=== PATIENT | female | born 1990 | race Caucasian/White ===

== ENCOUNTER 2017-08-22 14:06 | Emergency (ER) | payer OTHER ==
[~2017-08-22] VITALS: Ht 167.6 cm; Wt 116.0 kg
[~2017-08-22 14:06] MED LIST: ALPR0.5T99 PO; FEXO180 PO; LORA10TA7 PO; MEDR4PAK3 PO; MONT4CHW2 PO; RANI150UDC PO; ZYRT10TA12 PO
[2017-08-22 14:25] VITALS: BP 176/106; PULSE 155; RESP 16; TEMP 98.8; O2SAT 97
[2017-08-22] MEDS ORDERED: BIRTH CONTROL (15:06)
[2017-08-22] MEDS ORDERED: MONT10TA2 PO (15:06)
[2017-08-22] MEDS ORDERED: NAPR500T2 PO (15:06)
[2017-08-22] MEDS ORDERED: BP MED (15:06)
[2017-08-22] MEDS ORDERED: CITA20TA4 PO (15:06)
[2017-08-22] MEDS ORDERED: LORA1TAB12 PO (15:06)
[2017-08-22] MEDS ORDERED: ACETAMINOPHEN/HYDROcodone 325 MG/5 MG TAB PO ONE (15:30)
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
[2017-08-22] MEDS ORDERED: ROBA500T PO (16:36)
[2017-08-22] MEDS ORDERED: DICL75TA PO (16:36)
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
[2017-08-22 17:11] VITALS: BP 157/77; PULSE 138; RESP 16; O2SAT 100
== END 2017-08-22 17:24 | disposition home or self-care (01) ==
LOC: PHEFT 14:06
DX: S13.4XXA Sprain of ligaments of cervical spine, initial encounter (principal); S40.012A Contusion of left shoulder, initial encounter; M54.2 Cervicalgia; M54.5 Low back pain; R00.0 Tachycardia, unspecified; F41.9 Anxiety disorder, unspecified; F32.9 Major depressive disorder, single episode, unspecified; V43.52XA Car driver injured in collision with other type car in traffic accident, initial encounter; Z79.899 Other long term (current) drug therapy
CPT/HCPCS: 70450; 71045; 72110; 72125; 73030; 99284